=== PATIENT | male | born 1930 | race Caucasian/White ===

== ENCOUNTER 2016-06-20 13:24 | Emergency (ER) | payer MEDICARE ==
--- NOTE | 2016-06-20 15:19 | ERRECORD ---
[facility] EMERGENCY RECORD HPI FALL (14:17 JPIP) CHIEF COMPLAINT: Patient presents for evaluation of fall, from standing, Patient presents for evaluation of Home health nurse was attempting a transfer out of a wheel chair to his bed when he fell striking the back of his head. no LOC, no bleeding. HISTORIAN: History provided by patient, History provided by patient's spouse. LOCATION: Symptoms are localized, most severe to occipital swelling. TIME COURSE: Sudden onset of symptoms, just prior to arrival, Symptoms are improving. SEVERITY: Current severity of pain rated as 0/10. ASSOCIATED WITH: No associated neck pain, No associated chest pain, No associated abdominal pain, No associated back pain, No associated clavicle pain, No associated shoulder pain, No associated elbow pain, No associated wrist pain, No associated hand pain, No associated finger pain, No associated hip pain, No associated knee pain, No associated ankle pain, No associated foot pain, Associated with contusion(s), to the scalp, No associated laceration(s), No associated loss of consciousness, No associated near syncope, No associated neurological symptoms prior to arrival, No associated paresthesias, No associated syncope, No associated vomiting. EXACERBATED BY: Patient's condition exacerbated by nothing. RELIEVED BY: Patient's condition relieved by time. RISK FACTORS: Risk factors for spinal injury, include age, Risk factors for intracranial bleed, include age very old. ROS (14:19 JPIP) CONSTITUTIONAL: Historian denies lethargy, denies malaise. EYES: Historian denies vision changes. ENT: Historian denies otorrhea, denies rhinorrhea. CARDIOVASCULAR: Historian denies chest pain, denies palpitations. RESPIRATORY: Historian denies cough, denies shortness of breath. GI: Historian denies nausea, denies vomiting. SKIN: Historian denies skin changes, denies skin lesions. NEUROLOGIC: Historian denies confusion, denies dizziness, denies headache, denies mental status changes, denies seizures. no new weakness. NOTES: All systems reviewed, negative except as described above. PAST MEDICAL HISTORY MEDICAL HISTORY: Stroke 07/28/14 (PUREED FOOD AND SLURRED SPEECH); Past medical history includes cardiac history, myocardial infarction, Past medical history includes history of hypertension. (13:30 SFER) MALE SURGICAL HISTORY: Open heart surgery; LEFT HIP AND FEMUR. (13:30 SFER) PSYCHIATRIC HISTORY: no history of suicidal ideations, No history of suicide attempts, No history of hallucinations, No history of homicidal ideations, No history of violence towards others, No &a-1R&a+25V*p+0X*r4127I*c202B*c15G*c2P*p-0X&a-25V&a+1R Name: Wally Washburn : 1930 M86 MedRec: [id number] AcctNum: [id number] Prepared: MonJun 20, 2016 14:59 by Interface Page 1 of 4 pMD [facility] EMERGENCY RECORD previous psychiatric history. (13:30 SFER) SOCIAL HISTORY: Social History includes lives with , Patient denies alcohol use, Patient denies drug use, Patient has no smoking history. (13:30 SFER) NOTES: Nursing records reviewed, Medication list reviewed. (14:44 JPIP) KNOWN ALLERGIES No Known Drug Allergies CURRENT MEDICATIONS Plavix: TABLET : Strength - 75 mg : ORAL Patient Dose: 75 mg Oral once a day. (13:38 HASA) aspirin: TABLET : Strength - 325 mg : ORAL Patient Dose: 325 mg Oral once a day. (13:39 HASA) amLODIPine: TABLET : Strength - 10 mg : ORAL Patient Dose: 10 mg Oral once a day. (13:40 HASA) Avodart: CAPSULE : Strength - 0.5 mg : ORAL Patient Dose: 0.5 mg Oral once a day. (13:40 HASA) NovoLOG: VIAL (ML) : Strength - 100 unit/mL : SUBCUTANEOUS Patient Dose: 33-36 units Subcutaneous 2 times a day.33 units in morning, 36 units at night. (13:42 HASA) VITAL SIGNS VITAL SIGNS: BP: 155/62, Pulse: 81, Resp: 16 (Non-Labored), Temp: 98.1 (Oral), Pain: 0, O2 sat: 94 on Room Air, Time: 06/20/2016 13:26. (13:26 SFER) BP: 144/63, Pulse: 72, Resp: 16 (Non-Labored), Pain: 0, O2 sat: 93 on Room Air, Time: 06/20/2016 13:53. (13:53 HASA) BP: 146/65, Pulse: 69, O2 sat: 95 on Room Air, Time: 06/20/2016 14:00. (14:00 HASA) BP: 131/64, Pulse: 71, Resp: 14 (Non-Labored), Temp: 97.7 (Oral), Pain: 0, O2 sat: 97 on Room Air, Time: 06/20/2016 14:48. (14:48 HASA) BP: 148/68, Pulse: 73, Resp: 16 (Non-Labored), O2 sat: 93 on Room Air, Time: 06/20/2016 14:30. (14:30 HASA) BP: 125/67, Pulse: 64, O2 sat: 93 on Room Air, Time: 06/20/2016 14:15. (14:15 HASA) PHYSICAL EXAM CONSTITUTIONAL: Vital signs reviewed, Patient afebrile, Pulse normal, Blood pressure normal, Respiratory rate normal, Patient appears non toxic, Patient appears pain free. (14:20 JPIP) HEAD: Head exam included findings of, no Abreu's sign, No raccoon eyes, Contusion to occipital, No abrasions, No lacerations, normocephalic. (14:20 JPIP) &a-1R&a+25V*p+0X*e8522Z*c202B*c15G*c2P*p-0X&a-25V&a+1R Name: Wally Washburn : 1930 M86 MedRec: [id number] AcctNum: [id number] Prepared: MonJun 20, 2016 14:59 by Interface Page 2 of 4 pMD [facility] EMERGENCY RECORD EYES: Eye exam included findings of eyelids normal to inspection, Pupils equally round and reactive to light, Left pupil 2 mm in size, Right pupil 2 mm in size, Conjunctiva normal, Sclera normal, no periorbital ecchymosis, no periorbital edema, no periorbital erythema. (14:20 JPIP) ENT: Ear exam normal, external ear normal, tympanic membranes normal, no foreign body, no drainage, no bleeding, Pharynx exam normal, not injected, no swelling, symmetrical, Uvula exam normal, midline, no edema, Mouth exam included findings of, irritation to the sides of his tongue, no lacerations no bites, Teeth with, poor dentition. (14:42 JPIP) NECK: Neck exam included findings of normal range of motion, Trachea midline, no cervical adenopathy, no tenderness. (14:42 JPIP) RESPIRATORY CHEST: Respiratory exam included findings of no respiratory distress. (14:42 JPIP) UPPER EXTREMITY: Upper extremity exam included findings of inspection normal, Range of motion limited, left sided weakness. (14:42 JPIP) LOWER EXTREMITY: Left hip exam normal, no tenderness to palpation, Right hip exam normal, no tenderness to palpation, left sided weakness. (14:42 JPIP) SKIN: Skin exam included findings of skin warm, dry, and normal in color. (14:42 JPIP) EKG INTERPRETATION (13:39 JPIP) MONITOR STRIP: laundry machine tender strip interpreted by Emergency Department Physician, Monitor strip shows normal sinus rhythm, with unifocal premature ventricular complexes, with infrequent premature ventricular complexes. 12 LEAD EKG INTERPRETATION: 12 lead EKG interpreted by Emergency Department Physician at time of study, 12 lead EKG shows, first degree AV Block, Rate (beats per minute): 79, with unifocal premature ventricular complexes, with infrequent premature ventricular complexes, Similar to old EKG, ST, T waves, inverted, Areas affected: lateral leads, Clinical impression:, non-specific EKG, other dysrhythmia 1st degree block. RADIOLOGYINTERPRETATION (14:27 JPIP) HEAD: Head CT, without contrast shows, no fluid in the sinuses, no acute ischemic stroke, no epidural hematoma, no subdural hematoma, no intra-cerebral hemorrhage, atrophy, chronic ischemic changes, no intraventricular hemorrhage, no midline shift, no cerebral edema, Other findings: old CVA. NECK: Cervical spine CT shows, no fractures, no subluxation, no cord compression, degenerative joint disease. CARTOGRAPHY PROFESSOR: Preliminary review of CT scans by, Radiologist. PROBLEM LIST No recorded problems &a-1R&a+25V*p+0X*l1149P*c202B*c15G*c2P*p-0X&a-25V&a+1R Name: Wally Washburn : 1930 M86 MedRec: [id number] AcctNum: [id number] Prepared: MonJun 20, 2016 14:59 by Interface Page 3 of 4 pMD [facility] EMERGENCY RECORD DIAGNOSIS (14:35 JPIP) FINAL: PRIMARY: head contusion, ADDITIONAL: enlarged lymph node - cervical. PRESCRIPTION No recorded prescriptions DISPOSITION PATIENT: Disposition Type: Discharge, Disposition: *Discharge Home, Condition: Good. (14:35 JPIP) Patient left the department. (14:54 HASA) Conley: HASA=ROMAN March Hannah JPIP=DO Tinoco Joseph SFER=JOSUÉ Galarza, Davey &a-1R&a+25V*p+0X*b9697G*c202B*c15G*c2P*p-0X&a-25V&a+1R Name: Yung Washburneliana Torres : 1930 M86 MedRec: [id number] AcctNum: [id number] Prepared: MonJun 20, 2016 14:59 by Interface Page 4 of 4 pMD MTDD
--- NOTE | 2016-06-20 15:22 | PICIS ---
[facility] EMERGENCY RECORD TRIAGE (13:27 SFER) TRIAGE NOTES: patient presents after falling when transferring from wheelchair to bed. patient did hit back of head. no LOC. history of strokes. (13:27 SFER) PATIENT: NAME: Wally Washburn, AGE: 86, GENDER: male, : [place] 1930, TIME OF GREET: MonJun 20, 2016 13:26, PREFERRED LANGUAGE: Yakut, ETHNICITY: Not or , ECODE BILLING MAP: [facility], SSN: [id number], Zip Code: [address], KG WEIGHT: 86.18, PHONE: , , , PERSON ID: [id number], PAYMENT: [employer]. (13:27 SFER) COMPLAINT: Fall. (13:27 SFER) ADMISSION: URGENCY: 3 Urgent, ADMISSION SOURCE: Home, TRANSPORT: CAR, BED: TRIAGE. (13:27 SFER) TRIAGE SCREENING: Patient denies suicidal ideation, Patient denies presence of domestic violence. (13:30 SFER) TREATMENTS IN PROGRESS: Treatments given Prehospital: home meds. (13:30 SFER) PROVIDERS: TRIAGE NURSE: Maris Galarza RN. (13:27 SFER) VITAL SIGNS: BP 155/62, Pulse 81, Resp 16, (Non-Labored), Temp 98.1, (Oral), Pain 0, O2 Sat 94, on Room Air, Time 06/20/2016 13:26. (13:26 SFER) PREVIOUS VISIT ALLERGIES: No Known Drug Allergies. (13:27 SFER) No Known Drug Allergies. (13:30 SFER) KNOWN ALLERGIES No Known Drug Allergies CURRENT MEDICATIONS Plavix: TABLET : Strength - 75 mg : ORAL Patient Dose: 75 mg Oral once a day. (13:38 HASA) aspirin: TABLET : Strength - 325 mg : ORAL Patient Dose: 325 mg Oral once a day. (13:39 HASA) amLODIPine: TABLET : Strength - 10 mg : ORAL Patient Dose: 10 mg Oral once a day. (13:40 HASA) Avodart: CAPSULE : Strength - 0.5 mg : ORAL Patient Dose: 0.5 mg Oral once a day. (13:40 HASA) NovoLOG: VIAL (ML) : Strength - 100 unit/mL : SUBCUTANEOUS Patient Dose: 33-36 units Subcutaneous 2 times a day.33 units in morning, 36 units at night. (13:42 HASA) VITAL SIGNS VITAL SIGNS: BP: 155/62, Pulse: 81, Resp: 16 (Non-Labored), Temp: 98.1 (Oral), Pain: 0, O2 sat: 94 on Room Air, Time: 06/20/2016 13:26. (13:26 SFER) &a-1R&a+25V*p+0X*f8252O*c202B*c15G*c2P*p-0X&a-25V&a+1R Name: Wally Washburn : 1930 M86 MedRec: [id number] AcctNum: [id number] Prepared: MonJun 20, 2016 15:04 by Interface Page 1 of 6 pMD [facility] EMERGENCY RECORD BP: 144/63, Pulse: 72, Resp: 16 (Non-Labored), Pain: 0, O2 sat: 93 on Room Air, Time: 06/20/2016 13:53. (13:53 HASA) BP: 146/65, Pulse: 69, O2 sat: 95 on Room Air, Time: 06/20/2016 14:00. (14:00 HASA) BP: 131/64, Pulse: 71, Resp: 14 (Non-Labored), Temp: 97.7 (Oral), Pain: 0, O2 sat: 97 on Room Air, Time: 06/20/2016 14:48. (14:48 HASA) BP: 148/68, Pulse: 73, Resp: 16 (Non-Labored), O2 sat: 93 on Room Air, Time: 06/20/2016 14:30. (14:30 HASA) BP: 125/67, Pulse: 64, O2 sat: 93 on Room Air, Time: 06/20/2016 14:15. (14:15 HASA) NURSING ASSESSMENT: NEURO (13:42 HASA) CONSTITUTIONAL: Patient arrives, via personal wheelchair, Unsteady gait, Assistance to cart, History obtained from patient, Patient appears comfortable, Patient cooperative, Patient alert, Oriented to person, place and time, Skin warm, Skin dry, Skin normal in color, Mucous membranes pink, Mucous membranes moist, Patient is well-groomed, Patient complains of FALL, Patient arrives to the ER after a fall from standing. Reports hitting head but denies LOC. Denies pain. PAIN: Patient rates pain as 0 out of 10. NEURO: Pupils equally round and reactive to light, Able to close eyes, Face symmetrical, Speech, slurred, slow, Hx of previous stroke, GCS:, Eye opening: (4) - Spontaneous, Verbal: (5) - Oriented/conversive, Motor: (6) - Obeys commands/Spontaneous, GCS Total: 15, Hand grasps unequal, right stronger than left, Upper extremity strength strong, Lower extremity strength strong, Foot press unequal, right greater than left, no associated dizziness present, no associated fever, no associated memory loss, no associated loss of consciousness, no associated nausea. ENT: Ear assessment findings include ear normal to inspection, Nasal assessment findings include nose normal to inspection, Sinuses normal, Nasal mucosa normal, Mouth and throat assessment findings include mouth inspection normal, Uvula normal, Tonsils normal, Mucous membranes pink, and moist, Able to swallow, Patient, Slow, slurred, no associated fever, no associated headache. SAFETY: Side rails up, Cart/Stretcher in lowest position, Family at bedside, Call light within reach, Hospital ID band on. NURSING PROCEDURE: DISCHARGE NOTE (14:53 HASA) DISCHARGE: Patient discharged to home, in a wheelchair, family driving, accompanied by //partner, Summary of Care printed/ provided, Patient requested and was provided an electronic copy of Discharge Instructions, Transition record given to patient, Discharge instructions given to patient, Notes: Patient and spouse instructed on discharge instructions. Patient and spouse instructed to follow-up with PCP. SAFETY: Side rails up, Cart/Stretcher in lowest position, Family at bedside, Call light within reach, Hospital ID band on. &a-1R&a+25V*p+0X*q1497A*c202B*c15G*c2P*p-0X&a-25V&a+1R Name: Wally Washburn : 1930 M86 MedRec: [id number] AcctNum: [id number] Prepared: MonJun 20, 2016 15:04 by Interface Page 2 of 6 D [facility] EMERGENCY RECORD NURSING PROCEDURE: EKG CHART (13:28 SFER) EK lead EKG performed on the left chest, done by ADELE Bailon, first EKG. SAFETY: Side rails up, Cart/Stretcher in lowest position, Call light within reach, Hospital ID band on. NURSING PROCEDURE: TRANSPORT TO TESTS PATIENT IDENTIFIER: Patient actively involved in identification process, Patient's identity verified by patient stating name, Patient's identity verified by patient stating date. (13:49 HASA) TRANSPORT TO TESTS: Transport indicated to facilitate diagnosis, Patient transported to CT scan, via cart, Accompanied by x-ray orthodontic technician assistant. (13:49 HASA) FOLLOW-UP: After procedure, patient returned to emergency department. (14:00 HASA) SAFETY: Side rails up, Cart/Stretcher in lowest position, Family at bedside, Call light within reach, Hospital ID band on. (13:49 HASA) ORDER DETAILS Order Name: CT Brain WO Con, Status: Active, Time: 13:34 06/20/2016, User: INDIRA, - Ordered for: DO Tinoco Joseph, - Entered by: DO Tinoco Joseph - MonJun 20, 2016 13:34, - Quantity: 1, Order Name: CT Cervical Spine WO Con, Status: Active, Time: 13:34 06/20/2016, User: INDIRA, - Ordered for: DO Tinoco Joseph, - Entered by: DO Tinoco Joseph - MonJun 20, 2016 13:34, - Quantity: 1, Order Name: EKG 12 Lead in Emergency Room, Status: Active, Time: 13:35 06/20/2016, User: INDIRA, - Ordered for: DO Tinoco Joseph, - Entered by: DO Tinoco Joseph - MonJun 20, 2016 13:35, - Quantity: 1. HPI FALL (14:17 INDIRA) CHIEF COMPLAINT: Patient presents for evaluation of fall, from standing, Patient presents for evaluation of Home health nurse was attempting a transfer out of a wheel chair to his bed when he fell striking the back of his head. no LOC, no bleeding. HISTORIAN: History provided by patient, History provided by patient's spouse. LOCATION: Symptoms are localized, most severe to occipital swelling. TIME COURSE: Sudden onset of symptoms, just prior to arrival, Symptoms are improving. SEVERITY: Current severity of pain rated as &a-1R&a+25V*p+0X*q5642J*c202B*c15G*c2P*p-0X&a-25V&a+1R Name: Wally Washburn : 1930 M86 MedRec: [id number] AcctNum: [id number] Prepared: MonJun 20, 2016 15:04 by Interface Page 3 of 6 pMD [facility] EMERGENCY RECORD . ASSOCIATED WITH: No associated neck pain, No associated chest pain, No associated abdominal pain, No associated back pain, No associated clavicle pain, No associated shoulder pain, No associated elbow pain, No associated wrist pain, No associated hand pain, No associated finger pain, No associated hip pain, No associated knee pain, No associated ankle pain, No associated foot pain, Associated with contusion(s), to the scalp, No associated laceration(s), No associated loss of consciousness, No associated near syncope, No associated neurological symptoms prior to arrival, No associated paresthesias, No associated syncope, No associated vomiting. EXACERBATED BY: Patient's condition exacerbated by nothing. RELIEVED BY: Patient's condition relieved by time. RISK FACTORS: Risk factors for spinal injury, include age, Risk factors for intracranial bleed, include age very old. ROS (14:19 JPIP) CONSTITUTIONAL: Historian denies lethargy, denies malaise. EYES: Historian denies vision changes. ENT: Historian denies otorrhea, denies rhinorrhea. CARDIOVASCULAR: Historian denies chest pain, denies palpitations. RESPIRATORY: Historian denies cough, denies shortness of breath. GI: Historian denies nausea, denies vomiting. SKIN: Historian denies skin changes, denies skin lesions. NEUROLOGIC: Historian denies confusion, denies dizziness, denies headache, denies mental status changes, denies seizures. no new weakness. NOTES: All systems reviewed, negative except as described above. PAST MEDICAL HISTORY MEDICAL HISTORY: Stroke 07/28/14 (PUREED FOOD AND SLURRED SPEECH); Past medical history includes cardiac history, myocardial infarction, Past medical history includes history of hypertension. (13:30 SFER) MALE SURGICAL HISTORY: Open heart surgery; LEFT HIP AND FEMUR. (13:30 SFER) PSYCHIATRIC HISTORY: no history of suicidal ideations, No history of suicide attempts, No history of hallucinations, No history of homicidal ideations, No history of violence towards others, No previous psychiatric history. (13:30 SFER) SOCIAL HISTORY: Social History includes lives with , Patient denies alcohol use, Patient denies drug use, Patient has no smoking history. (13:30 SFER) NOTES: Nursing records reviewed, Medication list reviewed. (14:44 JPIP) PHYSICAL EXAM CONSTITUTIONAL: Vital signs reviewed, Patient afebrile, Pulse normal, Blood pressure normal, Respiratory rate normal, Patient appears non toxic, Patient appears pain free. (14:20 JPIP) &a-1R&a+25V*p+0X*e4439F*c202B*c15G*c2P*p-0X&a-25V&a+1R Name: Wally Washburn : 1930 M86 MedRec: [id number] AcctNum: [id number] Prepared: MonJun 20, 2016 15:04 by Interface Page 4 of 6 pMD [facility] EMERGENCY RECORD HEAD: Head exam included findings of, no Abreu's sign, No raccoon eyes, Contusion to occipital, No abrasions, No lacerations, normocephalic. (14:20 JPIP) EYES: Eye exam included findings of eyelids normal to inspection, Pupils equally round and reactive to light, Left pupil 2 mm in size, Right pupil 2 mm in size, Conjunctiva normal, Sclera normal, no periorbital ecchymosis, no periorbital edema, no periorbital erythema. (14:20 JPIP) ENT: Ear exam normal, external ear normal, tympanic membranes normal, no foreign body, no drainage, no bleeding, Pharynx exam normal, not injected, no swelling, symmetrical, Uvula exam normal, midline, no edema, Mouth exam included findings of, irritation to the sides of his tongue, no lacerations no bites, Teeth with, poor dentition. (14:42 JPIP) NECK: Neck exam included findings of normal range of motion, Trachea midline, no cervical adenopathy, no tenderness. (14:42 JPIP) RESPIRATORY CHEST: Respiratory exam included findings of no respiratory distress. (14:42 JPIP) UPPER EXTREMITY: Upper extremity exam included findings of inspection normal, Range of motion limited, left sided weakness. (14:42 JPIP) LOWER EXTREMITY: Left hip exam normal, no tenderness to palpation, Right hip exam normal, no tenderness to palpation, left sided weakness. (14:42 JPIP) SKIN: Skin exam included findings of skin warm, dry, and normal in color. (14:42 JPIP) EVENTS TRANSFER: Triage to Emergency Triage. (MonJun 20, 2016 13:27 SFER) Emergency Triage to Emergency Room -04. (13:28 SFER) Removed from Emergency Emergency Room -04. (14:54 HASA) RADIOLOGYINTERPRETATION (14:27 JPIP) HEAD: Head CT, without contrast shows, no fluid in the sinuses, no acute ischemic stroke, no epidural hematoma, no subdural hematoma, no intra-cerebral hemorrhage, atrophy, chronic ischemic changes, no intraventricular hemorrhage, no midline shift, no cerebral edema, Other findings: old CVA. NECK: Cervical spine CT shows, no fractures, no subluxation, no cord compression, degenerative joint disease. INSPECTOR WREATH: Preliminary review of CT scans by, Radiologist. EKG INTERPRETATION (13:39 JPIP) MONITOR STRIP: grain merchandiser strip interpreted by Emergency Department Physician, Monitor strip shows normal sinus rhythm, with unifocal premature ventricular complexes, with infrequent premature ventricular complexes. 12 LEAD EKG INTERPRETATION: 12 lead EKG interpreted by Emergency Department Physician at time of study, 12 lead EKG shows, &a-1R&a+25V*p+0X*b3053W*c202B*c15G*c2P*p-0X&a-25V&a+1R Name: Wally Washburn : 1930 M86 MedRec: [id number] AcctNum: [id number] Prepared: MonJun 20, 2016 15:04 by Interface Page 5 of 6 pMD [facility] EMERGENCY RECORD first degree AV Block, Rate (beats per minute): 79, with unifocal premature ventricular complexes, with infrequent premature ventricular complexes, Similar to old EKG, ST, T waves, inverted, Areas affected: lateral leads, Clinical impression:, non-specific EKG, other dysrhythmia 1st degree block. O2SAT INTERPRETATION (13:40 JPIP) O2SAT: Continuous pulse oximetry, Oxygen saturation 94%, on room air, Oxygen saturation interpretation: Normal, No intervention required. PROBLEM LIST No recorded problems DIAGNOSIS (14:35 JPIP) FINAL: PRIMARY: head contusion, ADDITIONAL: enlarged lymph node - cervical. DISPOSITION PATIENT: Disposition Type: Discharge, Disposition: *Discharge Home, Condition: Good. (14:35 JPIP) Patient left the department. (14:54 HASA) INSTRUCTION (14:34 JPIP) DISCHARGE: CLOSED HEAD INJURY NO WAKEUP ADULT. SPECIAL: Follow up with Primary Care Physician within 72 hours Return to the Emergency Department for increased symptoms problems or concerns Take acetaminophen or ibuprofen for pain. PRESCRIPTION No recorded prescriptions IMAGING *EKG: Image captured from scanner. (13:34 HASA) *DISCHARGE INSTRUCTIONS RECEIPT: Image captured from scanner. (14:59 HASA) *SUPPLY CHARGE SHEET: Image captured from scanner. (14:59 HASA) *EKG: Image captured from scanner. (14:59 HASA) Conley: HASA=ROMAN March Hannah JPIP=DO Tinoco Joseph SFER=JOSUÉ Galarza, Maris &a-1R&a+25V*p+0X*u6119Q*c202B*c15G*c2P*p-0X&a-25V&a+1R Name: aWlly Washburn : 1930 M86 MedRec: [id number] AcctNum: [id number] Prepared: MonJun 20, 2016 15:04 by Interface Page 6 of 6 pMD MTDD
--- NOTE | 2016-06-20 18:32 | CT ---
CT BRAIN WITHOUT CONTRAST 06/20/2016 TECHNIQUE: A noncontrast CT was done emergently, following trauma. FINDINGS: Axial slices reveal diffuse severe atrophy with moderate compensatory dilatation of the v entricles. Deep white matter lucency is consistent with chronic microvascular ischemia. There are a few areas, such as in the left basal ganglia, that are a bit more punctate and could be small lacu martina infarcts. 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 Additionally, a small lacunar i nfarct is seen in the right thalamus. No intracranial bleeding or extraaxial hematoma is seen. The calvarium appears intact. The sphenoid sinus and mastoid air cells are clear, as well as the other visible paranasal sinuses. IMPRESSION 1. Atrophy and chronic ischemic changes, as noted above. 2. No acute intracranial findings. POS: HOME
--- NOTE | 2016-06-20 18:47 | CT ---
CT CERVICAL SPINE 06/20/2016 TECHNIQUE: A spiral CT of the cervical spine was performed following trauma. Axial slices were ac quired and coronal and sagittal reconstructions were done. FINDINGS: No fracture, dislocation, or soft tissue swelling is seen. The C1 to dens distance is n ormal, and the soft tissues are normal in thickness. Ossification of the ligamentum nuchae is noted posteriorly. Disk space narrowing is prominent at C5-C6 and at C6-C7. Findings by level follow: C1-C2: No acute findings. C2-C3: No acute findings. C3-C4: Slight disk space narrowing. Left facet arthritis. Mild right foraminal narrowing and mode rate left foraminal narrowing. C4-C5: Bilateral facet arthritis, worse on the left than the right. Mild bilateral foraminal narro wing. C5-C6: Moderate to severe right foraminal narrowing and moderate left foraminal narrowing. C6-C7: Prominent disk-osteophyte complex centrally and to the right, slightly impinging on the thec al sac. Mild left foraminal narrowing. C7-T1: No acute findings. T1-T2: No acute findings. The lung apices are clear and show no pneumothorax. IMPRESSION Degenerative changes, as noted above, but no acute traumatic findings. POS: HOME
== END 2016-06-20 14:50 | disposition home or self-care (01) ==
LOC: BURERS 13:24
DX: S00.83XA Contusion of other part of head, initial encounter (principal); R59.0 Localized enlarged lymph nodes; I25.2 Old myocardial infarction; I10 Essential (primary) hypertension; Z86.73 Personal history of transient ischemic attack (TIA), and cerebral infarction without residual deficits; Z79.82 Long term (current) use of aspirin; Z79.01 Long term (current) use of anticoagulants; Z79.4 Long term (current) use of insulin; Z79.899 Other long term (current) drug therapy; W19.XXXA Unspecified fall, initial encounter
CPT/HCPCS: 70450; 72125; 93005

== ENCOUNTER 2018-04-25 20:16 | Emergency (ER) | payer MEDICARE ==
[2018-04-25 21:29] LABS: #Basophils 0.1 thou/uL (0.0-0.2); #Eosinphils 0.3 thou/uL (0.0-0.7); #Lymphocytes 2.5 thou/uL (1.20-3.40); #Monocytes 0.6 thou/uL (0.11-0.59); #Neutrophils 5.4 thou/uL (1.40-6.50); %Basophils 0.6 % (0.0-1.0); %Eosinophils 3.3 % (0.0-10.0); %Lymphocytes 28.3 % (21.0-51.0); %Monocytes 7.1 % (0.0-10.0); %Neutrophils 60.7 % (42.0-75.0); Hemoglobin 12.4 g/dL (14.0-18.0); Mean Corpuscular HGB CONC 34.9 g/dL (32.0-36.0); Mean Corpuscular Hemoglobin 30.9 pg (27.0-31.0); Mean Corpuscular Volume 88.6 fL (78.0-98.0); Mean Platelet Volume 10.8 fL (7.4-10.4); Platelet Count 210 thou/uL (130-400); RBC Distribution Width 12.4 % (11.5-14.5); Red Blood Cell (RBC) Count 4.01 mill/uL (4.70-6.10); White Blood Cell (WBC) Count 8.9 thou/uL (4.8-10.8)
[2018-04-25 21:43] LABS: ALT (SGPT) 12 U/L (8-55); AST (SGOT) 14 U/L (5-34); Albumin 3.2 g/dL (3.4-4.8); Alkaline Phosphatase 141 U/L (40-150); Anion Gap 15 mmol/L (10-20); BUN (Urea Nitrogen) 23 mg/dL (8.4-25.7); Bilirubin, Total 0.4 mg/dL (0.2-1.2); Calc. Creatinine Clearance 0 mL/min (70-130); Calcium 8.7 mg/dL (7.8-10.44); Carbon Dioxide 23 mmol/L (23-31); Chloride 100 mmol/L (98-107); Estimated GFR-MDRD 48; Globulin 2.9 g/dL (2.4-3.5); Glucose 459 mg/dL (83-110); Potassium 3.5 mmol/L (3.5-5.1); Protein, Total 6.1 g/dL (5.8-8.1); Sodium 134 mmol/L (136-145)
[2018-04-25 21:44] LABS: CKMB 1.7 ng/mL (0-6.6); Troponin I 0.033 ng/mL (< 0.028)
[2018-04-25] MEDS ORDERED: Insulin Regular 300 UNITS/3 ML VIAL ONE (22:04)
[2018-04-25] MEDS ORDERED: Azithromycin 500 MG VIAL ONE (22:04)
[2018-04-25] MEDS ORDERED: Furosemide 40 MG/4 ML VIAL ONE (22:04)
--- NOTE | 2018-04-25 22:08 | RAD ---
PORTABLE CHEST 04/25/18 An AP portable film at 2036 is compared with a 02/11/18 study. The heart is mildly enlarged but unchanged from before. While there is some slight prominence of the pulmonary markings, I believe that this is really not much different than previously. Currently I co uld not diagnose CHF with any confidence. No focal pulmonary infiltrates or effusions were seen. IMPRESSION: No definite acute findings. Minimal prominence of markings which may or may not be significant. POS: HOME
[2018-04-25] MEDS ORDERED: predniSONE 20 MG TAB ONE (22:21)
[2018-04-25] MEDS ORDERED: cefTRIAXone\\ROCEPHIN 2 GM VIAL ONE (23:20)
[2018-04-25] MEDS ORDERED: Sodium Chloride 0.9% 100 ML ONE (23:20)
== END 2018-04-26 00:12 | disposition home or self-care (01) ==
LOC: BURERS 20:16
DX: J20.9 Acute bronchitis, unspecified (principal); E11.65 Type 2 diabetes mellitus with hyperglycemia; I11.0 Hypertensive heart disease with heart failure; I50.9 Heart failure, unspecified; E78.5 Hyperlipidemia, unspecified; I25.2 Old myocardial infarction; M85.80 Other specified disorders of bone density and structure, unspecified site; Z86.73 Personal history of transient ischemic attack (TIA), and cerebral infarction without residual deficits; Z87.891 Personal history of nicotine dependence; Z79.4 Long term (current) use of insulin; Z79.82 Long term (current) use of aspirin; Z79.899 Other long term (current) drug therapy
CPT/HCPCS: 36415; 71045; 80053; 82553; 83880; 84484; 85025; 93005; 94640; 94760; 96365; 96367; J0456; J0696; J1815; J1940; J7050; J7506; J7620